=== PATIENT | male | born 1935 | race Caucasian/White ===

== ENCOUNTER 2017-12-16 20:13 | Observation (INO) | payer MEDICARE, OTHER ==
[~2017-12-16] VITALS: Ht 180.3 cm; Wt 85.0 kg
[~2017-12-16 20:13] MED LIST: AMOX500T2 PO; ASPI81TA82 PO; ATOR40TA PO; CARV25TA PO; COZA50TA PO; PLAV75TA PO; PROS5TAB2 PO; PROT40TA PO
[2017-12-16 20:23] VITALS: BP 167/75; PULSE 64; RESP 16; TEMP 98.3; O2SAT 98
--- NOTE | 2017-12-16 20:26 | PD ---
HPI Chief Complaint: Chest Pain Time Seen by Provider: 20:20 Travel History International Travel<30 days: No Contact w/Intl Traveler<30days: No Traveled to known affect area: No History of Present Illness HPI Patient is an 82-year-old male with cardiac history of having a or vessel open- heart surgery in 2006 patient also has nitroglycerin he's had since that time but never had to take it. Tonight he had been eating dinner sitting down nothing strenuous when he developed left-sided chest pain he took a sublingual nitroglycerin which made the pain go away. He in the ER is pain-free patient's blood pressure is within normal limits and his heart rate is only 66 he is awake alert not sweating not vomiting no chest pain at this time. Again the nitroglycerin 1 tab under the time he took relieved his pain patient says he was drinking a beer with friends were visiting from [place]. Patient has had heartburn in the past and he does take an antacid from time to time. The pain was localized to the substernal left-sided chest no radiation to the neck no radiation to the arm he has not seen another doctor for this pain and the nitroglycerin completely relieved the pain as a sharp stabbing pain PFSH Past Medical History Cancer: Yes (SKIN) Cardiac Catheterization: Yes (2010) Cardiovascular Problems: Yes (CO, CABG X 4) High Cholesterol: Yes Congestive Heart Failure: No Coronary Artery Disease: Yes Diabetes: No Diminished Hearing: Yes (REMOVAL OF BRAIN TUMOR 1999) GERD: Yes Hypertension: Yes Immunizations Current: No Myocardial Infarction: Yes Past Surgical History Abdominal Surgery: Yes (INGUINAL AND UMBILCIAL HERNIA REPAIR, REMOVED PART FAT PART OF STOMACH) Cardiac Surgery: Yes (BYPASS) Coronary Artery Bypass Graft: Yes (quadruple bypass) Other Surgery: Yes (TUMOR REMOVAL IN BRAIN) Social History Alcohol Use: Yes (OCCASIONALLY) Tobacco Use: No Substance Use: No Allergies-Medications (Allergen,Severity, Reaction): Coded Allergies: No Known Allergies (Verified Allergy, Unknown, 12/17/17) Reported Meds & Prescriptions Reported Meds & Active Scripts Active Reported Nitrostat SL (Nitroglycerin) 0.4 Mg Subl 0.4 Mg SL DIRECTED PRN 1 tablet under the tongue as needed for chest pain. Repeat every 5 minutes for a total of 3 DOSES or call 911 if NO relief. Pantoprazole (Pantoprazole Sodium) 40 Mg Tab 40 Mg PO DAILY Cozaar (Losartan Potassium) 25 Mg Tab 25 Mg PO DAILY Flomax (Tamsulosin HCl) 0.4 Mg Cap 0.4 Mg PO DAILY Centrum (Multiple Vitamins W/ Minerals) 1 Chew 1 Tab CHEW DAILY Carvedilol 25 Mg Tab 25 Mg BID Atorvastatin (Atorvastatin Calcium) 10 Mg Tab 10 Mg PO HS Aspirin 81 Mg Chew 81 Mg CHEW DAILY Eliquis (Apixaban) 5 Mg Tab 5 Mg PO BID Review of Systems Except as stated in HPI: all other systems reviewed are Neg Cardiovascular: Positive: Chest Pain or Discomfort (relieved by nitro SL x 2 ) Physical Exam Narrative GENERAL: painfree non toxic appearing and no vomit no diaphoresis SKIN: Warm and dry. HEAD: Atraumatic. Normocephalic. EYES: Pupils equal and round. No scleral icterus. No injection or drainage. ENT: No nasal bleeding or discharge. Mucous membranes pink and moist. NECK: Trachea midline. No JVD. CARDIOVASCULAR: Regular rate and rhythm. RESPIRATORY: No accessory muscle use. Clear to auscultation. Breath sounds equal bilaterally. GASTROINTESTINAL: Abdomen soft, non-tender, nondistended. Hepatic and splenic margins not palpable. MUSCULOSKELETAL: Extremities without clubbing, cyanosis, or edema. No obvious deformities. NEUROLOGICAL: Awake and alert. No obvious cranial nerve deficits. Motor grossly within normal limits. Five out of 5 muscle strength in the arms and legs. Normal speech. PSYCHIATRIC: Appropriate mood and affect; insight and judgment normal. Data Data Last Documented VS Vital Signs Date Time Temp Pulse Resp B/P (MAP) Pulse Ox O2 Delivery O2 Flow Rate FiO2 12/16/17 21:51 63 16 143/67 (92) 97 Room Air 12/16/17 20:23 98.3 Orders Orders Complete Blood Count With Diff (12/16/17 21:04) Comprehensive Metabolic Panel (12/16/17 21:04) Ckmb (Isoenzyme) Profile (12/16/17 21:04) Troponin I (12/16/17 21:04) Lipase (12/16/17 21:04) Chest, Pa & Lat (12/16/17 21:04) Nitroglycerin 2% Oint (Nitroglycerin 2% (12/16/17 21:15) Aspirin Chew (Aspirin Chew) (2/2/18 21:15) Prothrombin Time / Inr (Pt) (12/16/17 21:07) Famotidine Inj (Pepcid Inj) (12/16/17 21:15) Electrocardiogram (12/16/17 ) Admit Order (Ed Use Only) (12/16/17 22:15) Labs Laboratory Tests Test 12/16/17 21:13 White Blood Count 8.3 TH/MM3 Red Blood Count 4.19 MIL/MM3 Hemoglobin 13.7 GM/DL Hematocrit 38.6 % Mean Corpuscular Volume 92.3 FL Mean Corpuscular Hemoglobin 32.8 PG Mean Corpuscular Hemoglobin Concent 35.6 % Red Cell Distribution Width 12.8 % Platelet Count 135 TH/MM3 Mean Platelet Volume 9.0 FL Neutrophils (%) (Auto) 69.7 % Lymphocytes (%) (Auto) 21.9 % Monocytes (%) (Auto) 6.0 % Eosinophils (%) (Auto) 2.0 % Basophils (%) (Auto) 0.4 % Neutrophils # (Auto) 5.8 TH/MM3 Lymphocytes # (Auto) 1.8 TH/MM3 Monocytes # (Auto) 0.5 TH/MM3 Eosinophils # (Auto) 0.2 TH/MM3 Basophils # (Auto) 0.0 TH/MM3 CBC Comment DIFF FINAL Differential Comment Prothrombin Time 10.6 SEC Prothromb Time International Ratio 1.0 RATIO Blood Urea Nitrogen 13 MG/DL Creatinine 1.23 MG/DL Random Glucose 115 MG/DL Total Protein 6.7 GM/DL Albumin 3.6 GM/DL Calcium Level 8.4 MG/DL Alkaline Phosphatase 122 U/L Aspartate Amino Transf (AST/SGOT) 230 U/L Alanine Aminotransferase (ALT/SGPT) 111 U/L Total Bilirubin 1.8 MG/DL Sodium Level 136 MEQ/L Potassium Level 3.7 MEQ/L Chloride Level 101 MEQ/L Carbon Dioxide Level 28.2 MEQ/L Anion Gap 7 MEQ/L Estimat Glomerular Filtration Rate 56 ML/MIN Total Creatine Kinase 81 U/L Troponin I LESS THAN 0.02 NG/ML Lipase 191 U/L MDM Medical Decision Making Medical Screen Exam Complete: Yes Emergency Medical Condition: Yes Differential Diagnosis CAD angina GERD , PNA , costochondritis , vs pericarditis unstable angina vs NON STEMI other bronchitis Narrative Course EKG, NSR, TROP < 0.02, and admitted to chest pain center .. ASPIRIN 162 mg and Nitro paste and tele obs Diagnosis Primary Impression: Chest pain Additional Impressions: CAD (coronary artery disease) Hx of CABG Scripts Amlodipine (Amlodipine) 5 Mg Tab 5 MG PO DAILY for Blood Pressure Management, #30 TAB 0 Refills Prov: Justyn Tamez 12/17/17 Zander Chavez MD Dec 16, 2017 20:26
[2017-12-16] MEDS ORDERED: NITROGLYCERIN 2% OINT 1 GM PACKET TOPICAL ONE (21:15)
[2017-12-16] MEDS ORDERED: FAMOTIDINE 20 MG/2 ML VIAL IV PUSH SCH (21:15)
[2017-12-16] MEDS ORDERED: ASPIRIN 81 MG CHEW TAB CHEW ONE (21:15)
[2017-12-16 21:40] LABS: AUTOMATED NEUTROPHIL # 5.8 TH/MM3 (1.8-7.7); BASOPHIL % 0.4 % (0.0-2.0); EOSINOPHIL # 0.2 TH/MM3 (0-0.4); HEMATOCRIT 38.6 % (39.0-51.0); HEMOGLOBIN 13.7 GM/DL (13.0-17.0); LYMPH % 21.9 % (9.0-44.0); LYMPHOCYTE # 1.8 TH/MM3 (1.0-4.8); MEAN CELL VOLUME 92.3 FL (80.0-100.0); MEAN CORPUSCULAR HEMOGLOBIN 32.8 PG (27.0-34.0); MEAN CORPUSCULAR HGB CONC 35.6 % (32.0-36.0); MONOCYTE # 0.5 TH/MM3 (0-0.9); NEUT % 69.7 % (16.0-70.0); PLATELET COUNT 135 TH/MM3 (150-450); RED BLOOD COUNT 4.19 MIL/MM3 (4.50-5.90); RED CELL DISTRIBUTION WIDTH 12.8 % (11.6-17.2); WHITE BLOOD COUNT 8.3 TH/MM3 (4.0-11.0)
[2017-12-16] MEDS ORDERED: CARV25TA (21:50)
[2017-12-16] MEDS ORDERED: NITR0.4S SL (21:50)
[2017-12-16] MEDS ORDERED: APIX5TAB PO (21:50)
[2017-12-16] MEDS ORDERED: COZA25TA PO (21:50)
[2017-12-16] MEDS ORDERED: CENTCHW4 CHEW (21:50)
[2017-12-16] MEDS ORDERED: PANT40TA3 PO (21:50)
[2017-12-16] MEDS ORDERED: TAMS5CAP PO (21:50)
[2017-12-16] MEDS ORDERED: ASPI-516 CHEW (21:50)
[2017-12-16] MEDS ORDERED: ATOR10TA15 PO (21:50)
[2017-12-16 21:51] VITALS: BP 143/67; PULSE 63; RESP 16; O2SAT 97
[2017-12-16 21:54] LABS: ALBUMIN 3.6 GM/DL (3.4-5.0); AST (GOT) 230 U/L (15-37); BICARBONATE 28.2 MEQ/L (21.0-32.0); BLOOD UREA NITROGEN 13 MG/DL (7-18); CALCIUM 8.4 MG/DL (8.5-10.1); CHLORIDE 101 MEQ/L (98-107); CREATININE 1.23 MG/DL (0.60-1.30); GLOMERULAR FILTRATION RATE 56 ML/MIN (>89); GLUCOSE,RANDOM 115 MG/DL (74-106); SODIUM (NA) 136 MEQ/L (136-145)
--- NOTE | 2017-12-16 21:55 | RADRPT ---
EXAM DATE/TIME: 12/16/2017 21:20 [facility] COMPARISON: CHEST SINGLE AP, November 24, 2012, 8:52. INDICATIONS : Chest pain for 1 week MEDICAL HISTORY : Cardiovascular disease. SURGICAL HISTORY : CABG. Loop recorder ENCOUNTER: Initial ACUITY: 1 week PAIN SCORE: 5/10 LOCATION: Bilateral chest FINDINGS: There is a small air bubble overlying the right upper quadrant which is indeterminate. If this patien t demonstrates signs of an acute abdomen suggestive of free air, CT of the abdomen may be helpful for confirmation. Otherwise, this may be related to a loop of bowel interposed between liver and diaphra gm. The heart is stable. Loop recorder is noted. Median sternotomy wires are noted status post cardia c surgery. The lungs are clear. CONCLUSION: 1. Small air bubble overlying the right upper quadrant which is indeterminate. If this patient demons trates signs of an acute abdomen suggestive of free air, CT of the abdomen may be helpful for confirm ation. Otherwise, this may be related to a loop of bowel interposed between liver and diaphragm. 2. No acute cardiopulmonary disease. Itz Balderrama MD on December 16, 2017 at 21:50 Board Certified Radiologist. This report was verified electronically.
[2017-12-16 21:59] LABS: ALKALINE PHOSPHATASE 122 U/L (45-117); ALT (GPT) 111 U/L (12-78); TOTAL BILIRUBIN ADULT 1.8 MG/DL (0.2-1.0); TOTAL PROTEIN 6.7 GM/DL (6.4-8.2); TROPONIN I LESS THAN 0.02 NG/ML (0.02-0.05)
[2017-12-16 22:00] LABS: PROTHROMBIN TIME - PATIENT 10.6 SEC (9.8-11.6)
[2017-12-17] VITALS (8 sets, daily range): BP systolic 146–167; BP diastolic 69–87; PULSE 58–84; RESP 16–18; TEMP 97.8–98.5; O2SAT 93–97
[2017-12-17] MEDS ORDERED: SODIUM CHLORIDE 0.9% FLUSH 10 ML FLUSH IV FLUSH PRN (00:15)
[2017-12-17] MEDS: SODIUM CHLORIDE 0.9% FLUSH 10 ML FLUSH IV FLUSH SCH ×2 (00:25→09:32)
[2017-12-17 01:23] LABS: TROPONIN I LESS THAN 0.02 NG/ML (0.02-0.05)
[2017-12-17 03:45] LABS: TROPONIN I 0.02 NG/ML (0.02-0.05)
[2017-12-17] MEDS ORDERED: PANTOPRAZOLE SOD 40 MG DELAYED RELEASE TAB PO SCH (09:00)
[2017-12-17] MEDS ORDERED: TAMSULOSIN HCL 0.4 MG CAP PO SCH (09:00)
[2017-12-17] MEDS ORDERED: MULTIVITAMINS/MINERALS THERAPEUTIC TAB PO SCH (09:00)
[2017-12-17] MEDS ORDERED: LOSARTAN 25 MG TAB PO SCH (09:00)
[2017-12-17] MEDS ORDERED: CARVEDILOL 12.5 MG TAB PO SCH (09:00)
--- NOTE | 2017-12-17 10:04 | HHI.HP ---
HPI Primary Care Physician Unknown Chief Complaint Chest pain History of Present Illness This is an 82-year-old male with history of CAD with a four-vessel bypass in 2010 that presents to ED to be evaluated for chest discomfort. States that he had an episode 2 days ago while he was sitting on a couch. Was uncomfortable tightness in the center of his chest. He took a sublingual nitroglycerin immediately and it resolved essentially immediately afterwards. And last evening while he was playing rummy and about 3 or 4 hours after having some hot spicy wings and beer he developed a similar discomfort in the center of his chest. He also immediately took sublingual nitroglycerin and it resolved as well almost immediately. At that point he decided to seek treatment in the ED. Upon reviewing records she had a nonischemic Lexiscan in 2013 here. He states he's had no other stress testing or cardiac catheterization since then. He lives in [place]. He comes to [place] for the winter. A few months. He denied being short of breath, nauseous, or diaphoretic with the symptoms. The symptoms he had last 2 days are not similar to when he needed his bypass. He states that time he had a discomfort along both sides of his jaw. That was not present yet yesterday or the day before that. Denies recent illness. Denies fevers or chills. Review of Systems General: Patient denies fevers, chills recent, and recent travel HEENT: Patient denies headache, sore throat, difficulty swallowing. Cardiovascular: Has the chest discomfort as mentioned above. Denies sensation of heart beating rapidly or irregularly. No syncope. Denies diaphoresis. Respiratory: Denies shortness of breath or inspirational chest discomfort. Denies coughing wheezing or hemoptysis. GI: Patient denies nausea, vomiting, diarrhea, abdominal pain, bloody stools. Musculoskeletal: Patient denies joint pain or edema. Denies calf pain or edema. Neurovascular: Patient denies numbness, tingling, weakness in extremities. Denies headache. Endocrine: Denies polyuria and polydipsia. Hematologic: Denies easy bruising. Skin: Denies rash or itching. Past Family Social History Allergies: Coded Allergies: No Known Allergies (Verified Allergy, Unknown, 12/17/17) Past Medical History CAD with a four-vessel bypass in 2010. CVA 1 year ago. Paroxysmal atrial fibrillation. Hypertension and hyperlipidemia. GERD. Denies diabetes. Past Surgical History Four-vessel bypass in 2010. Removal of a benign brain tumor 1999. Inguinal and umbilical hernia repair. Reported Medications Reported Meds & Active Scripts Active Reported Nitrostat SL (Nitroglycerin) 0.4 Mg Subl 0.4 Mg SL DIRECTED PRN 1 tablet under the tongue as needed for chest pain. Repeat every 5 minutes for a total of 3 DOSES or call 911 if NO relief. Pantoprazole (Pantoprazole Sodium) 40 Mg Tab 40 Mg PO DAILY Cozaar (Losartan Potassium) 25 Mg Tab 25 Mg PO DAILY Flomax (Tamsulosin HCl) 0.4 Mg Cap 0.4 Mg PO DAILY Centrum (Multiple Vitamins W/ Minerals) 1 Chew 1 Tab CHEW DAILY Carvedilol 25 Mg Tab 25 Mg BID Atorvastatin (Atorvastatin Calcium) 10 Mg Tab 10 Mg PO HS Aspirin 81 Mg Chew 81 Mg CHEW DAILY Eliquis (Apixaban) 5 Mg Tab 5 Mg PO BID Active Ordered Medications Current Medications Medications (Trade) Dose Ordered Sig/Anupam Route Start Time Stop Time Status Last Admin (Pepcid Inj) 20 mg ONCE IV PUSH 12/16/17 21:15 12/16/17 21:59 (NS Flush) 2 ml UNSCH PRN IV FLUSH 12/17/17 00:15 (NS Flush) 2 ml BID IV FLUSH 12/17/17 00:15 12/17/17 09:32 (Lipitor) 10 mg HS PO 12/17/17 21:00 (Coreg) 25 mg BID PO 12/17/17 09:00 12/17/17 09:31 (Cozaar) 25 mg DAILY PO 12/17/17 09:00 12/17/17 09:31 (Theragran M Tab) 1 tab DAILY PO 12/17/17 09:00 12/17/17 09:31 (Protonix) 40 mg DAILY PO 12/17/17 09:00 12/17/17 09:31 (Flomax) 0.4 mg DAILY PO 12/17/17 09:00 12/17/17 09:31 Family History His brother has CAD. Social History Nonsmoker. He may have a couple beers a couple times per week. Denies illicit drugs. He is . His and nephew are at his bedside. Physical Exam Vital Signs Vital Signs Date Time Temp Pulse Resp B/P (MAP) Pulse Ox O2 Delivery O2 Flow Rate FiO2 12/17/17 07:34 97.8 64 16 167/83 (111) 94 12/17/17 04:00 59 12/17/17 03:00 98.1 84 16 146/69 (94) 93 12/17/17 01:30 98.0 74 18 158/87 (110) 94 12/17/17 00:59 12/17/17 00:31 97 21 12/17/17 00:00 58 16 162/75 (104) 97 Room Air 12/16/17 21:51 63 16 143/67 (92) 97 Room Air 12/16/17 20:23 98.3 64 16 167/75 (105) 98 Room Air 12/16/17 20:21 16 Physical Exam GENERAL: This is a well-nourished, well-developed patient, in no apparent distress. Patient speaks in clear complete sentences. Patient is pleasant. HEENT: Head is atraumatic and normocephalic. Neck is supple without lymphadenopathy and trachea is midline. No JVD or carotid bruits. CARDIOVASCULAR: Grade 2 systolic murmur left sternal border. Regular rate and rhythm without gallops, or rubs. RESPIRATORY: Clear to auscultation. Breath sounds equal bilaterally. No wheezes , rales, or rhonchi. Chest wall is nontender. No use of accessory muscles. GASTROINTESTINAL: Abdomen is nontender, nondistended. Abdomen soft. No obvious pulsatile mass or bruit. No CVA tenderness. Strong femoral pulses bilaterally. Normal bowel sounds in all quadrants. MUSCULOSKELETAL: Patient is moving upper and lower extremities freely. No calf tenderness or edema, no Homans sign. Strong pulses in upper and lower extremities. NEUROLOGICAL: Patient is alert and oriented. Cranial nerves 2-12 are grossly intact. No focal deficits and speech is clear. SKIN: No rash and turgor is normal. Laboratory Laboratory Tests Test 12/16/17 21:13 12/17/17 00:40 12/17/17 03:00 White Blood Count 8.3 Red Blood Count 4.19 Hemoglobin 13.7 Hematocrit 38.6 Mean Corpuscular Volume 92.3 Mean Corpuscular Hemoglobin 32.8 Mean Corpuscular Hemoglobin Concent 35.6 Red Cell Distribution Width 12.8 Platelet Count 135 Mean Platelet Volume 9.0 Neutrophils (%) (Auto) 69.7 Lymphocytes (%) (Auto) 21.9 Monocytes (%) (Auto) 6.0 Eosinophils (%) (Auto) 2.0 Basophils (%) (Auto) 0.4 Neutrophils # (Auto) 5.8 Lymphocytes # (Auto) 1.8 Monocytes # (Auto) 0.5 Eosinophils # (Auto) 0.2 Basophils # (Auto) 0.0 CBC Comment DIFF FINAL Differential Comment Prothrombin Time 10.6 Prothromb Time International Ratio 1.0 Blood Urea Nitrogen 13 Creatinine 1.23 Random Glucose 115 Total Protein 6.7 Albumin 3.6 Calcium Level 8.4 Alkaline Phosphatase 122 Aspartate Amino Transf (AST/SGOT) 230 Alanine Aminotransferase (ALT/SGPT) 111 Total Bilirubin 1.8 Sodium Level 136 Potassium Level 3.7 Chloride Level 101 Carbon Dioxide Level 28.2 Anion Gap 7 Estimat Glomerular Filtration Rate 56 Total Creatine Kinase 81 70 62 Troponin I LESS THAN 0.02 LESS THAN 0.02 0.02 Lipase 191 Result Diagram: 12/16/17211212/16/172112 Imaging Last 48 hours Impressions Chest X-Ray 12/16/172103 Signed Impressions: Service Date/Time: Saturday, December 16, 2017 21:20 - CONCLUSION: 1. Small air bubble overlying the right upper quadrant which is indeterminate. If this patient demonstrates signs of an acute abdomen suggestive of free air, CT of the abdomen may be helpful for confirmation. Otherwise, this may be related to a loop of bowel interposed between liver and diaphragm. 2. No acute cardiopulmonary disease. Itz Balderrama MD Course EKGs are sinus rhythm with nonspecific lateral ST-T changes. Caprini VTE Risk Assessment Caprini VTE Risk Assessment: Mod/High Risk (score >= 2) Caprini Risk Assessment Model Point Value = 1 Point Value = 2 Point Value = 3 Point Value = 5 Age 41-60 Minor surgery BMI > 25 kg/m2 Swollen legs Varicose veins or History of unexplained or recurrent spontaneous Oral contraceptives or hormone replacement Sepsis (< 1 month) Serious lung disease, including pneumonia (< 1 month) Abnormal pulmonary function Acute myocardial infarction Congestive heart failure (< 1 month) History of inflammatory bowel disease Medical patient at bed rest Age 61-74 Arthroscopic surgery Major open surgery (> 45 min) Laparoscopic surgery (> 45 min) Malignancy Confined to bed (> 72 hours) Immobilizing plaster cast Central venous access Age >= 75 History of VTE Family history of VTE Factor V Leiden Prothrombin [id number] Lupus anticoagulant Anticardiolipin antibodies Elevated serum homocysteine Heparin-induced thrombocytopenia Other congenital or acquired thrombophilia Stroke (< 1 month) Elective arthroplasty Hip, pelvis, or leg fracture Acute spinal cord injury (< 1 month) Prophylaxis Regimen Total Risk Factor Score Risk Level Prophylaxis Regimen 0-1 Low Early ambulation 2 Moderate Order ONE of the following: *Sequential Compression Device (SCD) *Heparin 5000 units SQ BID 3-4 Higher Order ONE of the following medications: *Heparin 5000 units SQ TID *Enoxaparin/Lovenox 40 mg SQ daily (WT < 150 kg, CrCl > 30 mL/min) *Enoxaparin/Lovenox 30 mg SQ daily (WT < 150 kg, CrCl > 10-29 mL/min) *Enoxaparin/Lovenox 30 mg SQ BID (WT < 150 kg, CrCl > 30 mL/min) AND/OR *Sequential Compression Device (SCD) 5 or more Highest Order ONE of the following medications: *Heparin 5000 units SQ TID (Preferred with Epidurals) *Enoxaparin/Lovenox 40 mg SQ daily (WT < 150 kg, CrCl > 30 mL/min) *Enoxaparin/Lovenox 30 mg SQ daily (WT < 150 kg, CrCl > 10-29 mL/min) *Enoxaparin/Lovenox 30 mg SQ BID (WT < 150 kg, CrCl > 30 mL/min) AND *Sequential Compression Device (SCD) Assessment and Plan Assessment and Plan * Chest pain: Patient has history of CAD with history of bypass in 2010. Had serial cardiac enzymes and EKGs. He will be seen by Dr. Harper of cardiology and the chest and center. He will undergo a Lexiscan. He will likely be discharged home if the stress test was nonischemic with instructions to follow- up with PCP and cardiology. Chest x-ray was read by radiologist small air bubble overlying right upper quadrant question was a loop of bowel interposed between liver and diaphragm. Patient was nontender in the abdomen. Likely not free air as he is nontender. He will need follow-up with PCP. Return to ED for interval issues. * CAD: This will be reassessed stress testing. Patient is resume medication. * Paroxysmal atrial fibrillation: Patient resume medication. * Hypertension: Continue current medication. * Hyperlipidemia: Continue current medication. * History of CVA: Continue current medication. * GERD: Continue current medication. Patient is stable at this time. He is agreeable to this plan. Justyn Tamez Dec 17, 2017 10:04
[2017-12-17] MEDS ORDERED: REGADENOSON INJ 0.4 MG/5 ML SYR ONE (10:55)
--- NOTE | 2017-12-17 12:56 | RADRPT ---
EXAM DATE/TIME: 12/17/2017 11:26 [facility] COMPARISON: MYOCARDIAL PERF PHARM SPECT, GATED W/EF, November 24, 2012, 13:44. INDICATIONS : Left sided chest pain. Angina. Myocardial infarction. DOSE: 25.9 mCi Tc99m Myoview at stress. 8.3 mCi Tc99m Myoview at rest. 0.4 mg Lexiscan STRESS SYMPTOMS: Shortness of breath. EJECTION FRACTION: 55% MEDICAL HISTORY : Hypertension. Carcinoma, basal cell. SURGICAL HISTORY : Inguinal hernia repair. CABG Brain tumor removed. ENCOUNTER: Initial ACUITY: 1 day PAIN SCALE: 5/10 LOCATION: Left chest TECHNIQUE: The patient underwent pharmacologic stress with infusion of prescribed dose. Continuous ECG tracing was monitored during stress. Gated SPECT imaging was performed after stress and conventional SPECT i maging was performed at rest. The examination was performed on a SPECT/CT scanner, both attenuation and non-corrected datasets were reviewed. FINDINGS: DISTRIBUTION: The maximum perfused segment at stress is in the inferior wall. PERFUSION STUDY: No reversible perfusion defects. Fixed defect at the apex again seen. GATED STUDY: There is intact wall motion and thickening with the exception of dyskinetic segment at the apex. CONCLUSION: 1. No reversible perfusion defects to suggest ischemia. 2. Previous apical myocardial infarction. 3. Ejection fraction 55%. RISK CATEGORY: High (>3% Annual Mortality Rate) Jose Bailon MD on December 17, 2017 at 12:50 Board Certified Radiologist. This report was verified electronically.
[2017-12-17] MEDS ORDERED: amLODIPine BESYLATE 5 MG TAB PO ONE (14:15)
[2017-12-17] MEDS ORDERED: AMLO5TAB2 PO (14:18)
--- NOTE | 2017-12-17 14:19 | HHI.DCPOC ---
Discharge Care Plan Diagnosis: (1) Chest pain (2) CAD (coronary artery disease) (3) Hx of CABG (4) Hypertension (5) Hyperlipidemia (6) Paroxysmal A-fib (7) History of CVA (cerebrovascular accident) (8) GERD (gastroesophageal reflux disease) Goals to Promote Your Health * To prevent worsening of your condition and complications * To maintain your health at the optimal level Directions to Meet Your Goals Take your medications as prescribed Follow your dietary instruction Follow activity as directed Keep your appointments as scheduled Take your immunizations and boosters as scheduled If your symptoms worsen call your PCP, if no PCP go to Urgent Care Center or Emergency Room Smoking is Dangerous to Your Health. Avoid second hand smoke Call the 24-hour hour crisis hotline for domestic abuse at Justyn Tamez Dec 17, 2017 14:19
--- NOTE | 2017-12-17 14:27 | TR ---
Date Performed: 12/17/2017 Time Performed: 11:45:22 DOCTOR: Wolfgang Harper DRUG LIST: CLINICAL HISTORY: ANGINA REASON FOR TEST: REASON FOR ENDING: OBSERVATION: CONCLUSION: Lexiscan stress test was performed under standard four minute protocol. Radionuclid e was injected one minute prior to ending the test. No electrocardiographic abormalities were present to suggest ischemia. Nuclear imaging and interpretation are pending. COMMENTS:
--- NOTE | 2017-12-17 14:30 | EKG ---
Date Performed: 12/17/2017 Time Performed: 06:35:12 PTAGE: 82 years EKG: Sinus rhythm LEFT ANTERIOR FASCICULAR BLOCK MODERATE T-WAVE ABNORMALITY, CONSIDER LATERAL ISCHEMIA ABNORMAL ECG A nterior myocardial infarction PREVIOUS TRACING : 12/17/2017 03.02 Since previous tracing, no significant change noted DOCTOR: Wolfgang Harper Interpretating Date/Time 12/17/2017 14:29:42
--- NOTE | 2017-12-17 14:33 | EKG ---
Date Performed: 12/17/2017 Time Performed: 03:02:40 PTAGE: 82 years EKG: SINUS BRADYCARDIA MARKED LEFT AXIS DEVIATION MODERATE INTRAVENTRICULAR CONDUCTION DELAY ABN ORMAL ECG Anterior myocardial infarction PREVIOUS TRACING : 12/17/2017 00.38 Since previous tracing, no significant change noted DOCTOR: Wolfgang Harper Interpretating Date/Time 12/17/2017 14:32:27
[2017-12-17] MEDS ORDERED: APIXABAN 5 MG TABLET PO SCH (15:00)
[2017-12-17] MEDS ORDERED: ATORVASTATIN 10 MG TAB PO SCH (21:00)
--- NOTE | 2017-12-18 14:18 | EKG ---
Date Performed: 12/16/2017 Time Performed: 20:25:55 PTAGE: 82 years EKG: Sinus rhythm WITH OCCASIONAL SUPRAVENTRICULAR PREMATURE COMPLEXES LEFT ANTERIOR FASCICULAR BLOCK SEPTAL MYOCARDIA L INFARCTION ABNORMAL ECG PREVIOUS TRACING : 11/24/2012 08.30 Since previous tracing, no significant change noted DOCTOR: Wolfgang Harper Interpretating Date/Time 12/18/2017 14:16:46
--- NOTE | 2017-12-19 07:36 | EKG ---
Date Performed: 12/17/2017 Time Performed: 00:38:28 PTAGE: 82 years EKG: Sinus rhythm MARKED LEFT AXIS DEVIATION SEPTAL MYOCARDIAL INFARCTION ABNORMAL ECG PREVIOUS TRACING : 12/16/2017 20.25 Since previous tracing, no significant change noted DOCTOR: Wolfgang Harper Interpretating Date/Time 12/19/2017 07:35:11
== END 2017-12-17 15:27 | disposition home or self-care (01) ==
LOC: NEPC 20:13 → NEDA 22:19 → NEPGCP 12-17 00:51
DX: R07.9 Chest pain, unspecified (principal); I25.10 Atherosclerotic heart disease of native coronary artery without angina pectoris; I10 Essential (primary) hypertension; E78.5 Hyperlipidemia, unspecified; I48.0 Paroxysmal atrial fibrillation; I25.2 Old myocardial infarction; K21.9 Gastro-esophageal reflux disease without esophagitis; Z86.73 Personal history of transient ischemic attack (TIA), and cerebral infarction without residual deficits; Z86.011 Personal history of benign neoplasm of the brain; Z95.1 Presence of aortocoronary bypass graft; Z79.82 Long term (current) use of aspirin
CPT/HCPCS: 71046; 78452; 80053; 82550; 83690; 84484; 85025; 85610; 93005; 93017; 96374; 99285; A9502; G0378; J2785